=== PATIENT | female | born 1945 | race Caucasian/White ===

== ENCOUNTER 2018-07-22 13:51 | Emergency (ER) | payer MEDICARE, BC ==
[~2018-07-22] VITALS: Ht 160 cm; Wt 61.4 kg
--- NOTE | 2018-07-22 15:00 | NUR ---
Nursing Note: Pt transfered to bed #20 at 1430. Pt curled up on L side stating her back hurts down into her feet. Dr. Dangelo at bedside to evaluate pt at approximately 1550. Pt denies SI. She indicates she is depressed due to depression. Will continue to monitor.
--- NOTE | 2018-07-22 15:52 | NUR ---
Nursing Note: Telepsych consult initiated.
[2018-07-22] MEDS ORDERED: HYDROcodone/acetaminophen 10/325mg tab PO ONE (16:10)
--- NOTE | 2018-07-22 16:47 | NUR ---
Nursing Note: Telepsych consult in process at this time. Pt's daughter at pt's side. Consult performed in Rm 27 with LOS by staff. Will continue to monitor.
--- NOTE | 2018-07-22 17:15 | NUR ---
Nursing Note: Telepsych complete, awaiting report. Will continue to monitor.
[2018-07-22] MEDS ORDERED: DULO60CA45 PO (17:44)
[2018-07-22 18:30] VITALS: BP 137/62
--- NOTE | 2018-07-22 18:30 | NUR ---
Discharge Note: Pt transferred at 1815 to home with her daughter. Pt left ambulatory accompanied by DEBORAH Edwards and pt's daughter. Pt calm and compliant with care. No S&S of distress. Pt A&Ox4. Pt denies SI. Prescription given to pt. Discharge instructions given and pt provided opportunity to ask questions. Pt cautioned to not drive subsequent to [facility] administration. Pt's possessions sent with the pt.
== END 2018-07-22 18:15 | disposition home or self-care (01) ==
LOC: ER 13:51
DX: F32.9 Major depressive disorder, single episode, unspecified (principal); G89.29 Other chronic pain; Z98.890 Other specified postprocedural states; Z88.2 Allergy status to sulfonamides; Z79.899 Other long term (current) drug therapy
CPT/HCPCS: 99284

== ENCOUNTER 2019-04-26 14:28 | Outpatient (CLI) | payer MEDICARE, BC ==
[~2019-04-26 14:28] MED LIST: DULO60CA45 PO
== END 2019-04-26 23:59 | disposition home or self-care (01) ==
LOC: VAS 14:28
DX: R60.0 Localized edema (principal); M21.371 Foot drop, right foot; Z87.891 Personal history of nicotine dependence
CPT/HCPCS: 93971